=== PATIENT | female | born 1980 ===

== ENCOUNTER 2016-12-17 07:06 | Emergency (ER) | payer SELFPAY ==
--- NOTE | 2016-12-17 09:07 | C.PDOC ---
History Of Present Illness The patient, a 36 y/o female, presents to the ED for evaluation of right knee pain and swelling which began this morning. 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 Patient was working a double shift yesterday. She denies direct injury/trauma to the site, falls, extremity numbness/weakness. Time Seen by Provider: 12/17/16 07:32 Chief Complaint (Nursing): Lower Extremity Problem/Injury History Per: Patient History/Exam Limitations: no limitations Onset/Duration Of Symptoms: Hrs Current Symptoms Are (Timing): Still Present Additional History Per: Patient - Knee Description Of Injury: denies: Fell, Struck With Object, Struck Against Object, Twisted, Laceration Past Medical History Reviewed: Historical Data, Nursing Documentation, Vital Signs Vital Signs: Last Vital Signs Temp 98.6 F 12/17/16 09:10 Pulse 84 12/17/16 09:10 Resp 16 12/17/16 09:10 BP 116/74 12/17/16 09:10 Pulse Ox 100 12/17/16 12:19 - Medical History PMH: No Chronic Diseases Surgical History: No Surg Hx Family History: States: Unknown Family Hx - Social History Hx Alcohol Use: Yes Hx Substance Use: No - Immunization History Hx Tetanus Toxoid Vaccination: No Hx Influenza Vaccination: Yes Hx Pneumococcal Vaccination: No Review Of Systems Except As Marked, All Systems Reviewed And Found Negative. Musculoskeletal: Positive for: Other (+right knee pain and swelling. no injury/ trauma ) Neurological: Negative for: Weakness, Numbness Physical Exam - Physical Exam Appears: Non-toxic, No Acute Distress, Other (+obese ) Skin: Normal Color, Warm, Dry, No Ecchymosis, No Other (right lower extremity: no erythema, no warmth ) Head: Atraumatic Eye(s): bilateral: Normal Inspection Oral Mucosa: Moist Neck: Normal ROM, Supple Chest: Symmetrical, No Deformity, No Tenderness Cardiovascular: Rhythm Regular, No Murmur Respiratory: Normal Breath Sounds, No Rales, No Rhonchi, No Wheezing Back: Normal Inspection Extremity: Normal ROM, Tenderness (slight to right knee on palpation ), No Calf Tenderness, Capillary Refill (less than 2 seconds ), No Deformity, No Swelling Neurological/Psych: Oriented x3, Normal Speech, Normal Cognition, Normal Sensation Gait: Steady ED Course And Treatment O2 Sat by Pulse Oximetry: 100 (on RA) Pulse Ox Interpretation: Normal - Other Rad Right Knee XR X-Ray: Interpreted by Me, Viewed By Me, Read By Radiologist Interpretation: Accession No. : [id number]. Patient Name / ID : PALLAVI WESLEY / [id number]. Exam Date : 12/17/2016 08:20:46 ( Approved ). Study Comment : Sex / Age : F / 36Y. Creator : GRACE SCHWARTZ. Dictator : Elke Soliz V. Insurance Broker : Dental Instrument Maker : Elke Connolly V. Approver2 : Report Date : 12/17/2016 08:42:58. My Comment : . PROCEDURE: Right Knee Radiographs. HISTORY: knee pain/swelling. COMPARISON: None. FINDINGS: BONES: Normal. No fracture. JOINTS: Minimal lateral knee joint line spurring is noted. Osteoarthritis. JOINT EFFUSION: Small joint effusion suggested. OTHER FINDINGS: Medial and lateral meniscal/ chondrocalcinosis suggested. IMPRESSION: Chondrocalcinosis suggested. Early degenerative changes inferred. No fracture. Small joint effusion suggested Progress Note: Right knee XR ordered, results show evidence of early degenerative changes. Patient received Motrin PO. On reassessment, patient is resting comfortably, showing no signs of distress, and reports an improvement in her pain. Knee brace applied to affected area and patient was instructed on use of crtuches. Patient is advised to follow up with referred orthopedist within 1-2 days for further evaluation. Reassessment Condition: Improved Disposition - Disposition Referrals: Dennis Diallo III, MD [Staff Provider] - Disposition: HOME/ ROUTINE Disposition Time: 09:06 Condition: STABLE Additional Instructions: Follow up with Orthopedist within 1-2 days. Return to ED if feel worse. Prescriptions: Ibuprofen [Motrin Tab] 600 mg PO Q8 #30 tab Famotidine [Pepcid] 20 mg PO BID #20 tab Instructions: Swollen Knee Joint (ED), Knee Pain (ED) Forms: Work Excuse - Clinical Impression Clinical Impression: Knee pain - PA / ELECTRONIC DEVELOPMENT TECHNICIAN / Resident Statement MD/DO has reviewed & agrees with the documentation as recorded. - Scribe Statement The provider has reviewed the documentation as recorded by the Scribe (Keke Akers) All medical record entries made by the Scribe were at my direction and personally dictated by me. I have reviewed the chart and agree that the record accurately reflects my personal performance of the history, physical exam, medical decision making, and the department course for this patient. I have also personally directed, reviewed, and agree with the discharge instructions and disposition.
[2016-12-17 09:16] VITALS: BP 116/74; PULSE 84; RESP 16; TEMP 98.6
--- NOTE | 2016-12-17 11:31 | RAD ---
PROCEDURE: Right Knee Radiographs. HISTORY: knee pain/swelling COMPARISON: None. FINDINGS: BONES: Normal. No fracture. JOINTS: Minimal lateral knee joint line spurring is noted. Osteoarthritis. JOINT EFFUSION: Small joint effusion suggested OTHER FINDINGS: Medial and lateral meniscal/ chondrocalcinosis suggested IMPRESSION: Chondrocalcinosis suggested. Early degenerative changes inferred. No fracture. Small joint effusion suggested
[2016-12-17 12:14] VITALS: O2SAT 100
== END 2016-12-17 09:35 | disposition home or self-care (01) ==
LOC: C.ER 07:06
DX: M25.561 Pain in right knee (principal)
CPT/HCPCS: 73562; 97116; 97161; 99285; G8978; G8979; G8980

== ENCOUNTER 2016-12-22 12:40 | Emergency (ER) | payer OTHER ==
[2016-12-22 13:05] VITALS: BP 130/79; TEMP 97.9; BMI 37.1
--- NOTE | 2016-12-22 13:32 | C.PDOC ---
History Of Present Illness 36 y/o female c/o continuing pain to right knee in spite of ibuprofen 600 q 8 hours. pt seen in ED 5 days ago for acute pain and swelling to right knee with no preceding injury; had xray of knee that was neg for fx, +early degenerative changes, done on that visit. pt with knee brace and crutches. pt reports swelling has decreased since last visit, is using cold compresses. but pain persists. denies fever and chills. no ocp use. Time Seen by Provider: 12/22/16 13:07 Chief Complaint (Nursing): Lower Extremity Problem/Injury History Per: Patient History/Exam Limitations: no limitations Onset/Duration Of Symptoms: Days (5) Current Symptoms Are (Timing): Better Severity: Mild - Knee Alleviating Factor(s): Ice Therapy, OTC Pain Medication Past Medical History Reviewed: Historical Data, Nursing Documentation, Vital Signs Vital Signs: Last Vital Signs Temp 97.9 F 12/22/16 12:55 Pulse 100 H 12/22/16 12:55 Resp 20 12/22/16 12:55 BP 130/79 12/22/16 12:55 Pulse Ox 97 12/22/16 13:35 - Medical History PMH: No Chronic Diseases Other Surgeries: right hip surgery Family History: States: Unknown Family Hx - Social History Hx Alcohol Use: Yes Hx Substance Use: No - Immunization History Hx Tetanus Toxoid Vaccination: No Hx Influenza Vaccination: Yes Hx Pneumococcal Vaccination: No Review Of Systems Constitutional: Negative for: Fever, Chills Musculoskeletal: Positive for: Leg Pain, Other (right knee pain). Negative for : Back Pain Skin: Negative for: Rash Neurological: Negative for: Weakness, Numbness Physical Exam - Physical Exam Appears: Non-toxic, No Acute Distress Skin: Warm, Dry Extremity: Other (right lower extremitiy with normal +2 femoral and dp pulses; decreased rom to right knee due to pain, mild lateral knee swelling and tenderness, no erythema or warmth, skin intact. no calf tenderness or swelling. ) ED Course And Treatment O2 Sat by Pulse Oximetry: 97 Medical Decision Making Medical Decision Making: pt with knee pain/mild swelling; better than on initial visit. will add tylenol q6 hours and ortho follow up. no signs of infection. Disposition Counseled Patient/Family Regarding: Diagnosis, Need For Followup - Disposition Referrals: [facility] [Outside] Dennis Diallo III, MD [Staff Provider] - Disposition Time: 13:37 Condition: STABLE Additional Instructions: Continue to use cold compresses to right knee, wear knee brace and use crutches. Continue taking ibuprofen 600 mg by mouth every 8 hours. You can add Tylenol (acetaminophen ) 1000 mg - (2 extra strength tablets) every 6-8 hours in between doses of ibuprofen. Call [facility] for assistance in making an appointment with orthopedics. Instructions: Knee Sprain (ED), Swollen Knee Joint (ED) Forms: General Discharge Instructions, Work Excuse - Clinical Impression Clinical Impression: Right knee sprain
[2016-12-22 13:43] VITALS: PULSE 95; RESP 18
[2016-12-22 20:21] VITALS: O2SAT 97
== END 2016-12-22 13:49 | disposition home or self-care (01) ==
LOC: C.ER 12:40
DX: S83.91XA Sprain of unspecified site of right knee, initial encounter (principal); X58.XXXA Exposure to other specified factors, initial encounter; Y93.9 Activity, unspecified; Y92.9 Unspecified place or not applicable